=== PATIENT | male | born 1970 ===

== ENCOUNTER 2018-01-08 15:28 | Observation (INO) | payer OTHER ==
--- NOTE | 2018-01-08 16:05 | ED PDOC ---
HPI: Chest Pain Time Seen by Provider: 01/08/18 15:48 Chief Complaint (Nursing): Chest Pain History Per: Patient Onset/Duration Of Symptoms: Days (1) Current Symptoms Are (Timing): Still Present Severity: Moderate Quality: Burning Associated Symptoms: Dyspnea Modifying Factors: None Exacerbating Factors: None Additional Complaint(s): Substernal chest burning assoc with SOB x 1 day. Burning nonradiating. Has had cough nonproductive no fever. Used asthma inhaler with mild improvement. Past Medical History Vital Signs: Last Vital Signs Temp 97.8 F 01/08/18 16:38 Pulse 71 01/08/18 16:38 Resp 18 01/08/18 16:38 BP 162/101 H 01/08/18 16:38 Pulse Ox 98 01/08/18 16:38 - Medical History PMH: Asthma, HTN - Family History Family History: States: Unknown Family Hx - Allergies Allergies/Adverse Reactions: Allergies Allergy/AdvReac Type Severity Reaction Status Date / Time No Known Allergies Allergy Verified 01/08/18 15:44 Review of Systems ROS Statement: Except As Marked, All Systems Reviewed And Found Negative Cardiovascular: Positive for: Chest Pain Respiratory: Positive for: Shortness of Breath Physical Exam - Reviewed Nursing Documentation Reviewed: Yes Vital Signs Reviewed: Yes - Physical Exam Appears: Positive for: Non-toxic, No Acute Distress Head Exam: Positive for: ATRAUMATIC, NORMAL INSPECTION, NORMOCEPHALIC Skin: Positive for: Normal Color, Warm, DRY Eye Exam: Positive for: EOMI, Normal appearance, PERRL ENT: Positive for: Normal ENT Inspection Neck: Positive for: Normal, Painless ROM Cardiovascular/Chest: Positive for: Regular Rate, Rhythm Respiratory: Positive for: Normal Breath Sounds. Negative for: Rhonchi, Wheezing, Respiratory Distress Gastrointestinal/Abdominal: Positive for: Normal Exam, Soft Back: Positive for: Normal Inspection Extremity: Positive for: Normal ROM Neurologic/Psych: Positive for: Alert, Oriented - ECG O2 Sat by Pulse Oximetry: 97 Disposition - Clinical Impression Clinical Impression: Chest pain, Hypertension - Patient ED Disposition Is Patient to be Admitted: Yes - Disposition Disposition Time: 16:43 Condition: FAIR Forms: [facility] (Norwegian) - Pt Status Changed To: Hospital Disposition Of: Observation - POA Present On Arrival: None
[2018-01-08] MEDS ORDERED: Nitroglycerin 2% 15 INCH/30 GM TUBE TOP STA (16:16)
[2018-01-08] MEDS ORDERED: Nitroglycerin 2% Ointment Foilpak UD TOP ONE (16:24)
[2018-01-08 16:58] LABS: BASO # 0.1 K/uL (0.0-0.2); EOS # 0.2 K/uL (0.0-0.7); EOS % 2.5 % (0.0-4.0); HEMOGLOBIN 16.9 g/dL (12.0-18.0); LYMPH # 2.3 K/uL (1.0-4.3); LYMPH % 29.6 % (20.0-40.0); MEAN CELL VOLUME 93.3 fl (80.0-94.0); MEAN CORPUSCULAR HEMOGLOBIN 32.1 pg (27.0-31.0); MEAN CORPUSCULAR HGB CONC 34.4 g/dL (33.0-37.0); MEAN PLATELET VOLUME 11.2 fl (7.2-11.7); MONO # 0.6 K/uL (0.0-0.8); MONO % 7.4 % (0.0-10.0); NEUT # 4.7 K/uL (1.8-7.0); NEUT % 59.5 % (50.0-75.0); NRBC % 0.1 % (0.0-0.0); RBC 5.28 Mil/uL (4.40-5.90); WHITE BLOOD COUNT 7.8 K/uL (4.8-10.8)
[2018-01-08 17:13] LABS: ALB/GLOB RATIO 1.3 (1.0-2.1); ALBUMIN 4.1 g/dL (3.5-5.0); ALT/SGPT 29 U/L (21-72); AST/SGOT 23 U/L (17-59); BLOOD UREA NITROGEN 12 mg/dl (9-20); CALCIUM 8.7 mg/dL (8.4-10.2); GFR AFRICAN-AMERICAN > 60; GFR NON-AFRICAN AMERICAN > 60
[2018-01-08] MEDS ORDERED: Albuterol HFA 90 mcg/actuation (8 g) INH PRN (17:15)
[2018-01-08] MEDS ORDERED: Alum-Mag Hydrox-Simethicone Susp (30 mL) PO PRN (17:16)
[2018-01-08] MEDS ORDERED: Pantoprazole 40 mg EC Tab PO ONE (17:29)
[2018-01-08] MEDS: Pantoprazole 40 mg EC Tab PO SCH (17:29)
--- NOTE | 2018-01-08 17:29 | CP.PCM.HP ---
History of Present Illness - History of Present Illness History of Present Illness: CC: CP This is a 47 year old male with a pmh of asthma and htn who presented to the ED c/o substernal chest pain, nonradiating, burning, constant, moderate to severe in nature, associated w/ coughing and some sob. the patient states the pain feels like it is in his stomach and progresses up into his chest and is accompanied with a bloating feeling. He denies ever having this pain before. The pain woke him up from sleep. In the ED, the patient was found to have nonischemic EKG and troponin WNL. Rest of labs appear WNL. CXR unremarkable. HD stable. The patient is to be observed overnight to evaluate for ACS on telemetry. Patient denies fevers, chills, nausea, vomiting, diarrhea, headache. All of the patient's questions were answered at the bedside. Present on Admission - Present on Admission Any Indicators Present on Admission: No History of DVT/PE: No History of Uncontrolled Diabetes: No Review of Systems - Review of Systems Review of Systems: A 12 point review of systems was conducted and found to be negative other than what was mentioned in the HPI Past Patient History - Infectious Disease Hx of Infectious Diseases: None - Past Medical History & Family History Past Medical History?: Yes Pertinent Family History: Mother has CAD and CABG hx (uncertain how old she was) Father has diabetes - Past Social History Smoking Status: Current Some Days Smoker Alcohol: None Drugs: Denies Home Situation {Lives}: With Family - CARDIAC Hx Hypertension: Yes - PULMONARY Hx Asthma: Yes Meds Allergies/Adverse Reactions: Allergies Allergy/AdvReac Type Severity Reaction Status Date / Time No Known Allergies Allergy Verified 01/08/18 15:44 Physical Exam - Additional Findings Additional findings: Physical exam: Constitutional- cooperative, awake, alert Head- NCAT, PERRL Eye- PERRL, EOMI ENT- normal exam, MMM. Neck- normal inspection, supple, no JVD Respiratory- CTAB, no wheezes rales rhonchi Cardiovascular- RRR, +S1, +S2 no MRG GI/Abdominal- obese abdomen, normal bowel sounds, soft, no mass, no hsm Skin- warm, dry Extremities Exam- normal capillary refill, normal inspection Neurological Exam- alert, awake, oriented Psych- normal mood, normal affect Results - Vital Signs Recent Vital Signs: Last Vital Signs Temp 97.8 F 01/08/18 16:38 Pulse 71 01/08/18 16:38 Resp 18 01/08/18 16:38 BP 162/101 H 01/08/18 16:38 Pulse Ox 97 01/08/18 16:43 - Labs Result Diagrams: 01/08/18 16:20 01/08/18 16:20 Labs: Laboratory Results - last 24 hr 01/08/18 01/08/18 16:20 16:20 WBC 7.8 RBC 5.28 Hgb 16.9 Hct 49.2 MCV 93.3 MCH 32.1 H MCHC 34.4 RDW 13.0 Plt Count 164 MPV 11.2 Neut % (Auto) 59.5 Lymph % (Auto) 29.6 Ralls % (Auto) 7.4 Eos % (Auto) 2.5 Baso % (Auto) 1.0 Neut # (Auto) 4.7 Lymph # (Auto) 2.3 Ralls # (Auto) 0.6 Eos # (Auto) 0.2 Baso # (Auto) 0.1 Sodium 141 Potassium 3.5 L Chloride 106 Carbon Dioxide 21 L Anion Gap 18 BUN 12 Creatinine 0.8 Est GFR ( Amer) > 60 Est GFR (Non-Af Amer) > 60 Random Glucose 86 Calcium 8.7 Total Bilirubin 0.2 AST 23 ALT 29 Alkaline Phosphatase 66 Troponin I < 0.0120 Total Protein 7.4 Albumin 4.1 Globulin 3.3 Albumin/Globulin Ratio 1.3 Assessment & Plan - Assessment and Plan (Free Text) Plan: ASSESSMENT/PLAN 1) Atypical Chest pain, evaluate for acute coronary syndrome, also consider CP related to dyspepsia/GERD - Obs/tele - Serial troponins x 3 - Daily EKG - Lipid profile, HGA1C - ASA daily - Monitor vitals - Nitropaste - Maalox and Protonix to be given, will assess to see if this prevents further cp - Cardiology consultation if troponins become elevated - Smoking cessation counseling - HD stable at this time 2) Uncontrolled HTN - Was on BP medication before but has not been taking any medication recently. - Start Cozaar 50 mg po daily and continue to monitor - Encourage weight loss - Avoid B blockers in asthmatic 3) Asthma, chronic - Controlled with ventolin inhaler at home, so will continue this - In no resp distress and saturating well on room air 4) DVT prophylaxis - heparin SQ
[2018-01-08 17:40] LABS: HDL CHOLESTEROL 34 MG/DL (30-70)
[2018-01-08 17:51] LABS: LDL CHOLESTEROL 47 mg/dL (0-129)
[2018-01-09 07:45] VITALS: RESP 18
[2018-01-09] MEDS: Pantoprazole 40 mg EC Tab PO SCH (08:39)
[2018-01-09 08:48] LABS: BLOOD UREA NITROGEN 15 mg/dl (9-20); CALCIUM 9.1 mg/dL (8.4-10.2); GFR AFRICAN-AMERICAN > 60; GFR NON-AFRICAN AMERICAN > 60
--- NOTE | 2018-01-09 10:45 | CARD ---
APPROVED REPORT EKG Measurement Heart [id number] <Conclusion> Normal sinus rhythm Normal ECG
[2018-01-09 11:54] VITALS: BP 133/84; PULSE 85; TEMP 98.9; O2SAT 96
--- NOTE | 2018-01-09 14:23 | CP.PCM.DIS ---
Provider - Provider Date of Admission: 01/08/18 16:41 Attending physician: Enrike Wilcox DO Primary care physician: service Consults: none Time Spent in preparation of Discharge (in minutes): 15 Hospital Course - Lab Results Lab Results: Most Recent Lab Values WBC 7.8 K/uL (4.8-10.8) 01/08/18 16:20 RBC 5.28 Mil/uL (4.40-5.90) 01/08/18 16:20 Hgb 16.9 g/dL (12.0-18.0) 01/08/18 16:20 Hct 49.2 % (35.0-51.0) 01/08/18 16:20 MCV 93.3 fl (80.0-94.0) 01/08/18 16:20 MCH 32.1 pg (27.0-31.0) H 01/08/18 16:20 MCHC 34.4 g/dL (33.0-37.0) 01/08/18 16:20 RDW 13.0 % (11.5-14.5) 01/08/18 16:20 Plt Count 164 K/uL (130-400) 01/08/18 16:20 MPV 11.2 fl (7.2-11.7) 01/08/18 16:20 Neut % (Auto) 59.5 % (50.0-75.0) 01/08/18 16:20 Lymph % (Auto) 29.6 % (20.0-40.0) 01/08/18 16:20 Sutton % (Auto) 7.4 % (0.0-10.0) 01/08/18 16:20 Eos % (Auto) 2.5 % (0.0-4.0) 01/08/18 16:20 Baso % (Auto) 1.0 % (0.0-2.0) 01/08/18 16:20 Neut # (Auto) 4.7 K/uL (1.8-7.0) 01/08/18 16:20 Lymph # (Auto) 2.3 K/uL (1.0-4.3) 01/08/18 16:20 Sutton # (Auto) 0.6 K/uL (0.0-0.8) 01/08/18 16:20 Eos # (Auto) 0.2 K/uL (0.0-0.7) 01/08/18 16:20 Baso # (Auto) 0.1 K/uL (0.0-0.2) 01/08/18 16:20 Sodium 142 mmol/l (132-148) 01/09/18 08:10 Potassium 4.0 MMOL/L (3.6-5.0) 01/09/18 08:10 Chloride 105 mmol/L (98-107) 01/09/18 08:10 Carbon Dioxide 24 mmol/L (22-30) 01/09/18 08:10 Anion Gap 17 (10-20) 01/09/18 08:10 BUN 15 mg/dl (9-20) 01/09/18 08:10 Creatinine 0.7 mg/dl (0.8-1.5) L 01/09/18 08:10 Est GFR ( Amer) > 60 01/09/18 08:10 Est GFR (Non-Af Amer) > 60 01/09/18 08:10 Random Glucose 102 mg/dL (75-110) 01/09/18 08:10 Hemoglobin A1c 5.2 % (4.2-6.5) 01/08/18 17:29 Calcium 9.1 mg/dL (8.4-10.2) 01/09/18 08:10 Total Bilirubin 0.2 mg/dl (0.2-1.3) 01/08/18 16:20 AST 23 U/L (17-59) 01/08/18 16:20 ALT 29 U/L (21-72) 01/08/18 16:20 Alkaline Phosphatase 66 U/L (38-126) 01/08/18 16:20 Troponin I < 0.0120 ng/mL (0.00-0.120) 01/09/18 08:10 Total Protein 7.4 G/DL (6.3-8.2) 01/08/18 16:20 Albumin 4.1 g/dL (3.5-5.0) 01/08/18 16:20 Globulin 3.3 gm/dL (2.2-3.9) 01/08/18 16:20 Albumin/Globulin Ratio 1.3 (1.0-2.1) 04/24/18 16:20 Triglycerides 90 mg/DL (0-149) 01/08/18 16:20 Cholesterol 104 mg/dL (0-199) 01/08/18 16:20 LDL Cholesterol Direct 47 mg/dL (0-129) 01/08/18 16:20 HDL Cholesterol 34 MG/DL (30-70) 01/08/18 16:20 - Hospital Course Hospital Course: This is a 47 year old male with a pmh of asthma and htn who presented to the ED c/o substernal chest pain, nonradiating, burning, constant, moderate to severe in nature, associated w/ coughing and some sob. the patient states the pain feels like it is in his stomach and progresses up into his chest and is accompanied with a bloating feeling. He denies ever having this pain before. The pain woke him up from sleep. The patient was admitted to telemetry/ observation overnight for ACS eval. He had 3 serial negative troponins with nonischemic EKG. No further chest pain with administration of Protonix. The patient was discharged to home today in stable condition. He is to f/u with PMD of his choice. ASSESSMENT/PLAN 1) Atypical Chest pain, ACS ruled out, likely due to GERD - Obs/tele - Serial troponins x 3 - Daily EKG - Lipid profile- cholesterol levels WNL - HGA1C 5.2 - Smoking cessation counseling 2) Uncontrolled HTN, improved - Was on BP medication before but has not been taking any medication recently. - Start Cozaar 50 mg po daily which he was given a script for one month supply - Encourage weight loss 3) Asthma, chronic - Controlled with ventolin inhaler at home 4) DVT prophylaxis - heparin SQ was given during his hospital stay Discharge Exam - Head Exam Head Exam: ATRAUMATIC, NORMAL INSPECTION, NORMOCEPHALIC - Additional Findings Additional findings: Physical exam: Constitutional- cooperative, awake, alert Head- NCAT, PERRL Eye- PERRL, EOMI ENT- normal exam, MMM. Neck- normal inspection, supple, no JVD Respiratory- CTAB, no wheezes rales rhonchi Cardiovascular- RRR, +S1, +S2 no MRG GI/Abdominal- normal bowel sounds, soft, no mass, no hsm Skin- warm, dry Extremities Exam- normal capillary refill, normal inspection Neurological Exam- alert, awake, oriented Psych- normal mood, normal affect Discharge Plan - Discharge Medications Prescriptions: Aluminum Hydroxide/Magnesium [Maalox Plus 30 ml] 30 ml PO Q4 PRN #1 bottle PRN Reason: Indigestion / Heartburn Losartan [Cozaar] 50 mg PO DAILY #30 tab Pantoprazole [Protonix EC Tab] 40 mg PO DAILY #30 ect - Follow Up Plan Condition: FAIR Disposition: HOME/ ROUTINE Instructions: Hypertension (DC), Hypertension (GEN)
== END 2018-01-09 13:48 | disposition home or self-care (01) ==
LOC: H.ER 15:28 → H.ERHOLD 16:41 → H.TEL 18:26
PROVIDERS: ADMIT Internal Medicine; ATTEND Internal Medicine
DX: R07.89 Other chest pain (principal); I10 Essential (primary) hypertension; J45.909 Unspecified asthma, uncomplicated; Z82.49 Family history of ischemic heart disease and other diseases of the circulatory system; Z83.3 Family history of diabetes mellitus; Z79.82 Long term (current) use of aspirin; F17.200 Nicotine dependence, unspecified, uncomplicated
CPT/HCPCS: 36415; 71046; 80048; 80053; 80061; 83036; 84484; 85025; 93005; 99283; G0378; J1644